=== PATIENT | male | born 1955 | race African-American/Black ===

== ENCOUNTER 2021-06-27 04:36 | Observation (INO) ==
[2021-06-27] MEDS ORDERED: ONDANSETRON 4 MG/2 ML VIAL IV STA (05:06)
[2021-06-27] MEDS ORDERED: ASPIRIN 325 MG TABLET PO STA (05:06)
[2021-06-27] MEDS ORDERED: NITROGLYCERIN 2% OINT 1 INCH/GM PACK TOP STA (05:06)
[2021-06-27] MEDS ORDERED: MORPHINE 4 MG/1 ML VIAL IV STA (05:09)
[2021-06-27 05:37] LABS: Basophils # 0.1 10*3/uL (0.0-0.2); Basophils % 0.5 % (0.0-0.8); Eosinophils # 0.2 10*3/uL (0.0-0.87); Eosinophils % 1.6 % (0.00-10.9); Hematocrit 41.4 VOL% (42.0-52.0); Hemoglobin 13.4 GM/DL (14.0-18.0); Immature Granulocytes % 0.4 %; Immature Granulocytes Absolute 0.04 #; Lymphocytes # 2.4 10*3/uL (1.4-4.0); Lymphocytes % 25.9 % (21.2-54.2); Mean Corpuscular HGB Conc 32.4 GM/DL (32-36); Mean Corpuscular Volume 87.2 FL (87-102); Mean Platelet Volume 9.6 FL (9.6-12.0); Monocytes % 8.8 % (1.7-12.7); Neutrophils % 62.8 % (38.7-73.9); Platelet Count 316 T/CUMM (130-400); Red Blood Count 4.75 MC/CUMM (3.8-5.5); Red Cell Distribution Width 14.2 % (9.3-17.3); White Blood Count 9.3 T/CUMM (4-12)
[2021-06-27 05:41] LABS: INR 1.3; PT Patient Result 13.9 SECS (10.5-12.0)
[2021-06-27 05:52] LABS: Alanine Aminotransferase 19 U/L (16-61); Albumin 3.3 G/DL (3.4-5.0); Alkaline Phosphatase 124 U/L (45-117); Amylase 128 U/L (25-115); Aspartate Amino Transferase 25 U/L (0-37); Bilirubin,Total < 0.39 MG/DL (0.20-1.00); Blood Urea Nitrogen 8 MG/DL (7-18); Calcium 9.5 MG/DL (8.5-10.1); Carbon Dioxide 26 MMOL/L (21-32); Estimated Glom Filtration Rate 101 ML/MIN; Glucose 92 MG/DL (74-106); Osmolality,Calculated 267.1 MOS/KG (273-304); Potassium 4.3 MMOL/L (3.5-5.1); Sodium 135 MMOL/L (136-145); Total Protein 7.6 G/DL (6.4-8.2)
[2021-06-27] MEDS ORDERED: ALUMINUM/MAGNES/SIMETH MAX STR 30 ML UDCUP PO PRN (07:51)
[2021-06-27] MEDS ORDERED: CALCIUM CARBONATE CHEW 500 MG TABLET PO PRN (07:51)
[2021-06-27] MEDS ORDERED: GLUCAGON 1 MG VIAL IM PRN (07:51)
[2021-06-27] MEDS ORDERED: ONDANSETRON 4 MG/2 ML VIAL IV PRN (07:51)
[2021-06-27] MEDS ORDERED: traZODone 50 MG TABLET PO PRN (07:51)
[2021-06-27] MEDS ORDERED: DOCUSATE SODIUM 100 MG CAPSULE PO PRN (07:51)
[2021-06-27] MEDS ORDERED: SIMETHICONE CHEW 125 MG TABLET PO PRN (07:51)
[2021-06-27] MEDS ORDERED: hydrALAZINE 20 MG/1 ML VIAL IV PRN (07:51)
[2021-06-27] MEDS ORDERED: DEXTROSE 10% 250 ML BAG IV PRN (07:51)
[2021-06-27] MEDS ORDERED: NITROGLYCERIN SL 0.4 MG TABLET SL PRN (07:58)
[2021-06-27 08:59] LABS: Barbiturates Screen,Urine Negative (Negative); Benzodiazepines Screen,Urine Negative (Negative); Cannabinoid Screen,Urine Negative (Negative); Opiate Screen,Urine Positive (Negative); Phencyclidine Screen,Urine Negative (Negative)
[2021-06-27] MEDS: ASPIRIN EC 325 MG TABLET PO SCH (09:02)
[2021-06-27] MEDS: NICOTINE 21 MG/24 HR PATCH TRANSDERM SCH (09:02)
[2021-06-27] MEDS: ENOXAPARIN 40 MG/0.4 ML SYRINGE SUBCUT SCH (09:02)
[2021-06-27] MEDS: PANTOPRAZOLE 40 MG TABLET PO SCH (10:07)
[2021-06-27] MEDS: ACETAMINOPHEN 325 MG TABLET PO PRN (20:00)
[2021-06-28] MEDS: ACETAMINOPHEN 325 MG TABLET PO PRN ×3 (04:20→15:33)
[2021-06-28 06:38] LABS: Basophils % 0.5 % (0.0-0.8); Eosinophils # 0.2 10*3/uL (0.0-0.87); Eosinophils % 1.8 % (0.00-10.9); Hematocrit 38.2 VOL% (42.0-52.0); Hemoglobin 12.5 GM/DL (14.0-18.0); Immature Granulocytes % 0.2 %; Immature Granulocytes Absolute 0.02 #; Lymphocytes # 2.5 10*3/uL (1.4-4.0); Lymphocytes % 28.3 % (21.2-54.2); Mean Corpuscular HGB Conc 32.7 GM/DL (32-36); Mean Corpuscular Volume 86.2 FL (87-102); Mean Platelet Volume 9.8 FL (9.6-12.0); Monocytes % 9.2 % (1.7-12.7); Platelet Count 315 T/CUMM (130-400); Red Blood Count 4.43 MC/CUMM (3.8-5.5); Red Cell Distribution Width 14.3 % (9.3-17.3); White Blood Count 8.8 T/CUMM (4-12)
[2021-06-28 06:57] LABS: Risk Ratio 2.13; VLDL Cholesterol 14.2 MG/DL
[2021-06-28] MEDS: ASPIRIN EC 325 MG TABLET PO SCH (09:49)
[2021-06-28] MEDS: NICOTINE 21 MG/24 HR PATCH TRANSDERM SCH (09:50)
[2021-06-28] MEDS: ENOXAPARIN 40 MG/0.4 ML SYRINGE SUBCUT SCH (09:50)
[2021-06-28] MEDS: PANTOPRAZOLE 40 MG TABLET PO SCH (09:50)
[2021-06-28 12:18] VITALS: BP 138/85
[2021-07-02] MEDS ORDERED: PROMETHAZINE 25 MG/1 ML VIAL IM ONE (07:00)
[2021-07-02] MEDS ORDERED: MEPERIDINE 50 MG/1 ML VIAL IM ONE (07:00)
[2021-07-02] MEDS ORDERED: LIDOCAINE 2% VISCOUS 100 ML BOTTLE SWISH/SPIT ONE (07:30)
[2021-07-02] MEDS ORDERED: MIDAZOLAM 2 MG/2 ML VIAL IV ONE (07:30)
[2021-07-02] MEDS ORDERED: LIDOCAINE 2% 20 ML VIAL RESP TX ONE (07:30)
[2021-07-02] MEDS ORDERED: LIDOCAINE 1% 20 ML VIAL MISC INJ ONE (07:30)
== END 2021-06-28 16:17 | disposition home or self-care (01) ==
LOC: EDUNIT# → EDBD → N.ED 04:36 → N.EDINP 04:36 → SUATTDRO 07:48 → N.EDINP 17:59 → N.TELES 18:21
PROVIDERS: ADMIT Hospitalist; ATTEND Emergency Medicine

== ENCOUNTER 2022-04-28 17:10 | Observation (INO) ==
[2022-04-29] MEDS ORDERED: MORPHINE 2 MG/1 ML SYRINGE IV PRN ×2 (00:24→03:33)
[2022-04-29] MEDS ORDERED: ONDANSETRON 4 MG/2 ML VIAL IV PRN ×2 (00:24→03:33)
[2022-04-29] MEDS ORDERED: SODIUM CHLORIDE 0.9% 1,000 ML IV STA ×2 (00:24→03:30)
[2022-04-29 01:20] LABS: Basophils % 0.2 % (0.0-0.8); Eosinophils # 0.1 10*3/uL (0.0-0.87); Eosinophils % 0.5 % (0.00-10.9); Hematocrit 33.5 VOL% (42.0-52.0); Hemoglobin 10.8 GM/DL (14.0-18.0); Immature Granulocytes % 0.5 %; Immature Granulocytes Absolute 0.06 #; Lymphocytes # 0.8 10*3/uL (1.4-4.0); Lymphocytes % 7.5 % (21.2-54.2); Mean Corpuscular HGB Conc 32.2 GM/DL (32-36); Mean Corpuscular Volume 82.7 FL (87-102); Mean Platelet Volume 8.9 FL (9.6-12.0); Monocytes # 1.4 10*3/uL (0.11-0.8); Monocytes % 12.4 % (1.7-12.7); Neutrophils % 78.9 % (38.7-73.9); Platelet Count 406 T/CUMM (130-400); Red Blood Count 4.05 MC/CUMM (3.8-5.5); Red Cell Distribution Width 14.9 % (9.3-17.3); White Blood Count 11.2 T/CUMM (4-12)
[2022-04-29 02:20] LABS: Albumin 2.6 G/DL (3.4-5.0); Bilirubin,Total 0.4 MG/DL (0.20-1.00); Calcium 9.7 MG/DL (8.5-10.1); Osmolality,Calculated 261.7 MOS/KG (273-304); Potassium 4.3 MMOL/L (3.5-5.1); Total Protein 7.3 G/DL (6.4-8.2)
[2022-04-29 02:47] LABS: Mucus,Urine Moderate /LPF (Occasional); RBC,Urine 2 /HPF (0-4); Squamous Epithelial Cell,Urine Occasional /HPF (0-10)
[2022-04-29 02:48] LABS: Bilirubin,Urine Small mg/dL (Negative); Blood, Urine Negative (Negative); Glucose,Urine (UA) Negative (Negative); Ketones,Urine 15 mg/dL (Negative); Nitrite,Urine Negative (Negative); Protein,Urine 30 mg/dL (Negative); Urine Appearance Clear (Clear); Urine Color Yellow (Yellow); Urine Specific Gravity > 1.030 (1.001-1.035); Urine pH 5.5 (4.5-8.0)
[2022-04-29] MEDS ORDERED: MORPHINE 2 MG/1 ML SYRINGE IV STA (03:25)
[2022-04-29] MEDS: SODIUM CHLORIDE 0.9% 1,000 ML IV SCH ×3 (03:40→23:31)
[2022-04-29] MEDS ORDERED: fentaNYL 50 MCG/HR PATCH TRANSDERM SCH (09:00)
[2022-04-29] MEDS: ENOXAPARIN 40 MG/0.4 ML SYRINGE SUBCUT SCH (09:28)
[2022-04-29] MEDS: PANTOPRAZOLE 40 MG TABLET PO SCH (09:33)
[2022-04-29] MEDS ORDERED: traZODone 50 MG TABLET PO SCH (21:00)
[2022-04-30] MEDS: PANTOPRAZOLE 40 MG TABLET PO SCH ×2 (11:45→11:50)
[2022-04-30] MEDS: ENOXAPARIN 40 MG/0.4 ML SYRINGE SUBCUT SCH (11:51)
[2022-04-30 12:12] VITALS: BP 104/73
[2022-04-30] MEDS ORDERED: fentaNYL 75 MCG/HR PATCH TRANSDERM SCH (13:00)
== END 2022-04-30 15:24 | disposition home health service (06) ==
LOC: EDBD → EDUNIT# → N.ED 17:10 → INTOOBSV 04-29 03:33 → N.TELES 04-29 03:33 → SUATTDRO 04-29 03:33 → N.ED 04-29 05:12
PROVIDERS: ADMIT Internal Medicine; ATTEND Internal Medicine